=== PATIENT | male | born 1980 | race Hispanic/Latino ===

== ENCOUNTER 2019-01-16 15:52 | Inpatient (IN) | payer OTHER ==
[~2019-01-16] VITALS: Ht 162.6 cm; Wt 63.5 kg
[2019-01-16] MEDS ORDERED: MORPHINE SULFATE INJ 4 MG/ML INJ 1ML IV NR (16:12)
[2019-01-16] MEDS ORDERED: SODIUM CHLORIDE 0.9% 1000ML 1,000 ML IV STA (16:12)
[2019-01-16] MEDS ORDERED: ONDANSETRON HCL INJ 2MG/ML 2ML 2 MG/ML VIAL IV NR (16:15)
[2019-01-16] MEDS ORDERED: ONDANSETRON HCL INJ 2MG/ML 2ML 2 MG/ML VIAL ONE (16:26)
[2019-01-16 16:37] LABS: BASOPHILS # (AUTO) 0.1 (0.0-0.1); BASOPHILS % 0.6 % (0.0-1.0); EOSINOPHILS # (AUTO) 0.2 (0.0-0.4); EOSINOPHILS % 2.2 % (0.0-6.0); HEMATOCRIT 49.3 % (38.2-49.6); HEMOGLOBIN 16.9 g/dL (14.0-18.0); LYMPHOCYTES # (AUTO) 3.3 (1.0-3.2); LYMPHOCYTES % 36.5 % (18.0-39.1); MEAN CORPUSCULAR HEMOGLOBIN 29.4 pg (28-32); MEAN CORPUSCULAR HGB CONC 34.3 g/dL (31-35); MEAN CORPUSCULAR VOLUME 85.7 fL (81-99); MONOCYTES # (AUTO) 0.5 (0.2-0.8); MONOCYTES % 5.9 % (4.4-11.3); NEUTROPHILS # (AUTO) 4.9 (2.1-6.9); NEUTROPHILS % 54.4 % (38.7-80.0); PLATELET COUNT 270 x10e3/uL (140-360); RED BLOOD COUNT 5.75 x10e6/uL (4.3-5.7); RED CELL DISTRIBUTION WIDTH 11.6 % (11.7-14.4)
[2019-01-16 16:40] LABS: BILIRUBIN,URINE NEGATIVE (NEGATIVE); CLARITY,URINE SL CLOUDY (CLEAR); COLOR,URINE YELLOW (YELLOW); KETONES,URINE NEGATIVE (NEGATIVE); LEUKOCYTE ESTERASE ,URINE NEGATIVE (NEGATIVE); NITRITE,URINE NEGATIVE (NEGATIVE); PROTEIN,URINE DIPSTICK TRACE (NEGATIVE); URINE UROBILINOGEN 0.2 mg/dL (0.2 - 1)
[2019-01-16] MEDS ORDERED: HYDROMORPHONE 1MG/1ML INJ IV NR (16:43)
[2019-01-16 16:48] LABS: BACTERIA,URINE FEW /HPF; EPITHELIAL CELLS,URINE FEW /LPF; WBC,URINE (MAN) 0-5 /HPF (0-5)
[2019-01-16 16:57] LABS: ALANINE AMINOTRANSFERASE 25 IU/L (0-55); ALBUMIN 4.4 g/dL (3.5-5.0); ALBUMIN/GLOBULIN RATIO 1.3 (0.8-2.0); ALKALINE PHOSPHATASE 111 IU/L (40-150); AMYLASE 55 U/L (25-125); ANION GAP 13.8 mmol/L (8-16); BLOOD UREA NITROGEN 23 mg/dL (7-26); BUN/CREATININE RATIO 19 (6-25); CALCIUM 9.5 mg/dL (8.4-10.2); CARBON DIOXIDE 29 mmol/L (22-29); CHLORIDE 103 mmol/L (98-107); CREATININE, SERUM 1.23 mg/dL (0.72-1.25); EST GLOMERULAR FILTRATION RATE > 60 ML/MIN (60-); GLUCOSE 105 mg/dL (74-118); LIPASE 32 U/L (8-78); POTASSIUM 3.8 mmol/L (3.5-5.1); SODIUM 142 mmol/L (136-145)
--- NOTE | 2019-01-16 18:08 | Diagnostic Imaging Report ---
EXAMINATION: CHEST SINGLE (PORTABLE) INDICATION: Right flank pain COMPARISON: Abdominal CT 01/16/2019 FINDINGS: AP view TUBES and LINES: None. LUNGS: Lungs are well inflated. Lungs are clear. There is no evidence of pneumonia or pulmonary edema. PLEURA: No pleural effusion or pneumothorax. HEART AND MEDIASTINUM: The cardiomediastinal silhouette is unremarkable. BONES AND SOFT TISSUES: No acute osseous lesion. Soft tissues are unremarkable. UPPER ABDOMEN: No free air under the diaphragm. IMPRESSION: No acute thoracic radiographic abnormality. Signed by: John Fowler DO on 01/16/2019 6:05 PM
--- NOTE | 2019-01-16 18:16 | Diagnostic Imaging Report ---
EXAM: CT Abdomen and Pelvis WITHOUT contrast INDICATION: Right flank pain COMPARISON: None. TECHNIQUE: Abdomen and pelvis were scanned utilizing a multidetector helical scanner from the lung base to the pubic symphysis without administration of IV contrast. Absence of intravenous contrast decreases sensitivity for detection of focal lesions and vascular pathology. Coronal and sagittal reformations were obtained. Routine protocol was performed. IV CONTRAST: None ORAL CONTRAST: None COMPLICATIONS: None RADIATION DOSE: Total DLP: 203 mGy*cm Estimated effective dose: (DLP x 0.015 x size factor) mSv CTDIvol has been reviewed. It is below the limits set by the Radiation Protocol Committee (RPC). Dose modulation, iterative reconstruction, and/or weight based adjustment of the mA/kV was utilized to reduce the radiation dose to as low as reasonably achievable. FINDINGS: LINES and TUBES: None. LOWER THORAX: Left basilar atelectasis. Mild air trapping in the right middle lobe. HEPATOBILIARY: No focal hepatic lesions. No biliary ductal dilation. GALLBLADDER: No radio-opaque stones or sludge. No wall thickening. SPLEEN: No splenomegaly. PANCREAS: No focal masses or ductal dilatation. ADRENALS: No adrenal nodules KIDNEYS/URETERS: No cystic or solid mass lesions. A 3 mm obstructive calculus at the right ureterovesicular junction with mild upstream right hydroureteronephrosis. A few punctate nonobstructive calculi in the right renal minor calyces. GI TRACT: No abnormal distention, wall thickening, or evidence of bowel obstruction. Appendix is normal. PELVIC ORGANS/BLADDER: Unremarkable. LYMPH NODES: No lymphadenopathy. VESSELS: Unremarkable. PERITONEUM / RETROPERITONEUM: No free air or fluid. BONES: Unremarkable. SOFT TISSUES: Unremarkable. IMPRESSION: A 3 mm obstructive calculus at the right ureterovesicular junction with mild upstream right hydroureteronephrosis. A few additional punctate nonobstructive calculi in the right kidney. Signed by: John Fowler DO on 01/16/2019 6:13 PM
[2019-01-16] MEDS ORDERED: ONDANSETRON HCL INJ 2MG/ML 2ML 2 MG/ML VIAL IV PRN (18:45)
--- OUTSIDE RECORDS SUMMARY | 2019-01-16 18:48 | XMS REPORT ---
Author Author [facility] Address Unknown Phone Unavailable Care Team Providers [employer] Executive Name Role Phone JAYLAN TAVAREZ Unavailable Unavailable Problems This patient has no known problems. Allergies, Adverse Reactions, Alerts This patient has no known allergies or adverse reactions. Medications This patient has no known medications. Results Test Description Test Time Test Comments Text Results Atomic Results Result Comments CT ABDOMEN/PELVIS WO 2019-01-16 18:10:00 [place] [address] Patient Name: FAREED BEJARANO MR #: [id number] : 1980 Age/Sex: 38/M Req #: [id number] Adm Physician: Ordered by: DAVY RAMOS [employer] Report #: [id number] Location: ER Room/Bed: Procedure: [id number] CT/CT ABDOMEN/PELVIS WO Exam Date: Exam Time: REPORT STATUS: Signed EXAM: CT Abdomen and Pelvis WITHOUT contrast INDICATION: Right fla nk pain COMPARISON: None. TECHNIQUE: Abdomen and pelvis were scanned utilizing a multidetector helical scanner from the lung base to the pubic symphysis without administration of IV contrast. Absence of intravenous contrast decreases sensitivity for detection of focal lesions and vascular pathology. Coronal and sagittal reformations were obtained. Routine protocol was performed. IV CONTRAST: None ORAL CONTRAST: None COMPLICATIONS: None RADIATION DOSE: Total DLP: 203 mGy*cm Estimated effective dose: (DLP x 0.015 x size factor) mSv CTDIvol has been reviewed. It is below the limits set by the Radiation Protocol Committee (RPC). Dose modulation, iterative reconstruction, and/or weight based adjustment of the mA/kV was utilized to reduce the radiation dose to as low as reasonably achievable. FINDINGS: LINES and TUBES: None. LOWER THORAX: Left basilar atelectasis. Mild air trapping in the right middle lobe. HEPATOBILIARY: No focal hepatic lesions. No biliary ductal dilation. GALLBLADDER: No radio-opaque stones or sludge. No wall thickening. SPLEEN: No splenomegaly. PANCREAS: No focal masses or ductal dilatation. ADRENALS: No adrenal nodules KIDNEYS/URETERS: No cystic or solid mass lesions. A 3 mm obstructive calculus at the right ureterovesicular j unction with mild upstream right hydroureteronephrosis. A few punctate nonobstructive calculi in the right renal minor calyces. GI TRACT: No abnormal distention, wall thickening, or evidence of bowel obstruction. Appendix is normal. PELVIC ORGANS/BLADDER: Unremarkable. LYMPH NODES: No lymphadenopathy. VESSELS: Unremarkable. PERITONEUM / RETROPERITONEUM: No free air or fluid. BONES: Unremarkable. SOFT TISSUES: Unremarkable. IMPRESSION: A 3 mm obstructive calculus at the right ureterovesicular junction with mild upstream right hyd roureteronephrosis. A few additional punctate nonobstructive calculi in the right kidney. Signed by: John Fowler DO on 01/16/2019 6:13 PM Dictated By: JOHN FOWLER DO 12 Transcribed By: SAMMY on 01/16/191812 COPY TO: DAVY RAMOS NP CHEST SINGLE (PORTABLE) 2019-01-16 18:04:00 [place] [address] Patient Name: FAREED BEJARANO MR #: [id number] : 1980 Age/Sex: 38/M Req #: [id number] Adm Physician: Ordered by: DAVY RAMOS NP Report #: [id number] Location: ER Room/Bed: Procedure: [id number] DX/CHEST SINGLE (PORTABLE) Exam Date: 01/16/19 Exam Time: 1710 REPORT STATUS: Signed EXAMINATION: CHEST SINGLE (PORTABLE) INDICATI ON: Right flank pain COMPARISON: Abdominal CT 01/16/2019 FINDINGS: AP view TUBES and LINES: None. LUNGS: Lungs are well inflated. Lungs are clear. There is no evidence of pneumonia or pulmonary edema. PLEURA: No pleural effusion or pneumothorax. HEART AND MEDIASTINUM: The cardiomediastinal silhouette is unremarkable. BONES AND SOFT TISSUES: No acute osseous lesion. Soft tissues are unremarkable. UPPER ABDOMEN: No free air under the diaphragm. IMPRESSION: No acute thoracic radiographic abnormality. Signed by: John Fowler DO on 01/16/2019 6:05 PM Dictated By: JOHN FOWLER DO 04 Transcribed By: SAMMY on 01/16/191804 COPY TO: DAVY RAMOS NP
[2019-01-16 20:30] VITALS: BP 127/85
--- NOTE | 2019-01-16 20:30 | NUR ---
received pt from ER to room 209, AAOx4, skin intact, no resp distress, c/o pain to flank area, pain med on board, ambulatory by self with steady gait, bed in lowest and locked position, call light in reach, family at bedside, informed pt that we need to strain his urine so he would need to use urinal, stated "ok"
[2019-01-16 21:30] VITALS: BP 127/85
[2019-01-16] MEDS: SODIUM CHLORIDE 0.9% 1000ML 1,000 ML IV SCH (21:32)
[2019-01-16] MEDS: HYDROMORPHONE 1MG/1ML INJ IV PRN (21:33)
[2019-01-17] VITALS (8 sets, daily range): BP systolic 101–121; BP diastolic 65–81
[2019-01-17] MEDS: SODIUM CHLORIDE 0.9% 1000ML 1,000 ML IV SCH ×3 (01:00→16:14)
[2019-01-17] MEDS: HYDROMORPHONE 1MG/1ML INJ IV PRN (04:00)
--- NOTE | 2019-01-17 06:30 | NUR ---
pagekyle betancur and informed him of consult
[2019-01-17 06:39] LABS: BASOPHILS % 0.2 % (0.0-1.0); EOSINOPHILS % 0.1 % (0.0-6.0); HEMATOCRIT 46.5 % (38.2-49.6); HEMOGLOBIN 15.6 g/dL (14.0-18.0); LYMPHOCYTES # (AUTO) 1.4 (1.0-3.2); LYMPHOCYTES % 11.7 % (18.0-39.1); MEAN CORPUSCULAR HEMOGLOBIN 28.8 pg (28-32); MEAN CORPUSCULAR HGB CONC 33.5 g/dL (31-35); MONOCYTES # (AUTO) 0.6 (0.2-0.8); MONOCYTES % 5.4 % (4.4-11.3); NEUTROPHILS # (AUTO) 9.7 (2.1-6.9); NEUTROPHILS % 81.9 % (38.7-80.0); PLATELET COUNT 252 x10e3/uL (140-360); RED BLOOD COUNT 5.41 x10e6/uL (4.3-5.7); RED CELL DISTRIBUTION WIDTH 11.6 % (11.7-14.4)
[2019-01-17 06:52] LABS: INR 0.91; PROTHROMBIN TIME 12.7 seconds (11.9-14.5)
[2019-01-17 06:53] LABS: PARTIAL THROMBOPLASTIN TIME 27.9 seconds (23.8-35.5)
[2019-01-17 06:59] LABS: ANION GAP 13.7 mmol/L (8-16); BLOOD UREA NITROGEN 18 mg/dL (7-26); BUN/CREATININE RATIO 14 (6-25); CALCIUM 8.7 mg/dL (8.4-10.2); CARBON DIOXIDE 24 mmol/L (22-29); CHLORIDE 105 mmol/L (98-107); CREATININE, SERUM 1.27 mg/dL (0.72-1.25); EST GLOMERULAR FILTRATION RATE > 60 ML/MIN (60-); GLUCOSE 110 mg/dL (74-118); POTASSIUM 3.7 mmol/L (3.5-5.1); SODIUM 139 mmol/L (136-145)
[2019-01-17] MEDS ORDERED: KETOROLAC TROMETHAMINE 30 MG/ML VIAL IV PRN (10:00)
[2019-01-17] MEDS ORDERED: CEFTRIAXONE SOD 1 GM/NS 50 ML 50 ML IV SCH (10:30)
--- NOTE | 2019-01-17 16:59 | Diagnostic Imaging Report ---
RADIOGRAPH(S) OF THE ABDOMEN AND PELVIS, 1 view(s) HISTORY: Stone COMPARISON: CT of the abdomen and pelvis January 16, 2019. FINDINGS: No specific evidence of obstruction or ileus. A subtle 3 mm calcific density just to the right of midline of the distal sacrum may reflect the stone seen on the comparison CT. The bones are partially obscured by stool and overlying bowel gas. IMPRESSION: Faintly visible 3 mm stone in the region of the right ureterovesicular junction/urinary bladder. Signed by: Dr. David Esquivel D.O., M.M.M. on 01/17/2019 4:56 PM
--- NOTE | 2019-01-17 19:20 | NUR ---
Report given to oncoming nurse of patient's status. Resting in bed no s/s of acute distress noted.
[2019-01-18] VITALS: BP 120/75
[2019-01-18 04:00] VITALS: BP 119/78
--- NOTE | 2019-01-18 07:00 | NUR ---
received am report from rn and morning rounds done. pt is alert and ambulatory, no s/s of distress. call light is accessible and instructed pt to call rn for help.
[2019-01-18 08:00] VITALS: BP 121/82
[2019-01-18 09:40] VITALS: BP 121/82
[2019-01-18 11:25] VITALS: BP 115/86
--- NOTE | 2019-01-18 11:36 | Diagnostic Imaging Report ---
Exam: KUB - 2 views Indication: Urinary calculi Comparison: KUB of 01/17/2019, CT abdomen and pelvis of 01/16/2019 Findings: No radiographically apparent urinary calculi. The subtle calcific density overlying the sacrum seen on the KUB of 01/17/2019 is not visualized on today's study. Nonobstructive bowel gas pattern. No free air. The osseous structures appear unremarkable. Impression: The calcification seen to the right of midline at the distal sacrum on the KUB of 01/17/2019 is no longer visualized. No radiographic apparent urinary calculi. Signed by: Fredy Jenkins MD on 01/18/2019 11:32 AM
--- NOTE | 2019-01-19 14:14 | Consultation ---
DATE OF CONSULTATION: 01/17/2019 Urology Consultation Consultation is called by the emergency room. CHIEF COMPLAINT AND REASON FOR CONSULTATION: Ureteral calculi. HISTORY OF PRESENT ILLNESS: Mr. Long is a very pleasant 38-year-old male admitted in the hospital with acute right-sided sharp, severe flank pain. Denied fevers. No chills. No nausea. No vomiting. PAST MEDICAL HISTORY: Denied. MEDICATIONS: Please see MAR. ALLERGIES: NKDA. SOCIAL HISTORY: Denied smoking or drinking. FAMILY HISTORY: Denied urologic stones or malignancies. REVIEW OF SYSTEMS: Noncontributory, other than problems mentioned above for 12-organ systems. PHYSICAL EXAMINATION: GENERAL: Middle-aged male, in no acute distress. VITAL SIGNS: Currently temperature 96.6, pulse 66, respirations 18, and blood pressure 120/72. HEENT: Sclerae anicteric. NECK: Supple. BACK: Without costovertebral angle tenderness bilaterally. ABDOMEN: Soft. It is nontender. It is nondistended. No palpable mass. No palpable hernias. No palpable lymphadenopathy. : Normal male external genitalia. EXTREMITIES: No edema. NEUROLOGIC: Moves all 4 extremities. PSYCH: Alert and mood appropriate. SKIN: Intact. Normal color. PERTINENT LABORATORY DATA: Sodium 139, potassium 3.7, chloride 105, bicarb 24, BUN 18, creatinine 1.27, and glucose 110. Hemoglobin 15.6, hematocrit 46.5, platelet count 252,000, and white cell count 11,800. PT 12.7 and PTT 27.9. Urinalysis 6-10 reds, 0-5 whites. The CAT scan revealing a 3 mm right UVJ stone, right hydronephrosis, punctate right kidney stones. IMPRESSION: 1. Ureteral and kidney stones. 2. Right hydronephrosis. 3. Right renal colic. 4. Microscopic hematuria. 5. Leukocytosis. 6. Coagulopathy. PLAN: We will employ a trial of passage of medical expulsive therapy. If this failed, may need stenting. Thank you for allowing me to participate in the care of your patient. We will be happy to follow along with you. MD ROMANA Boggs/ADRIANA /[id number]
== END 2019-01-18 13:10 | disposition home or self-care (01) | DRG 694 ==
LOC: ER 15:52 → ERHOLD 18:32 → MED/SURG2 19:59
PROVIDERS: ADMIT Internal Medicine; ATTEND Internal Medicine
DX: N13.2 Hydronephrosis with renal and ureteral calculous obstruction (principal); D68.9 Coagulation defect, unspecified; R31.29 Other microscopic hematuria; D72.829 Elevated white blood cell count, unspecified
CPT/HCPCS: 36415; 71045; 74018; 74176; 80048; 80053; 81001; 82150; 83690; 85025; 85610; 85730; 99284; J0696; J1170; J2270; J2405; J7030